=== PATIENT | female | born 1970 | race Hispanic/Latino ===

== ENCOUNTER → 2018-03-02 | Outpatient (CLI) | payer OTHER ==
--- NOTE | 2018-03-02 10:33 | Diagnostic Imaging Report ---
Left knee MRI without contrast. History: Knee pain. Meniscus tear. Swelling. Decreased range of motion. Pain worse with walking Comparison: None. Technique: Multiplanar multi-sequence MRI of the knee without contrast. Findings: Medial compartment: No meniscal tear, cartilage abnormality, or MCL tear. Lateral compartment: There is a complex displaced lateral meniscus tear involving the posterior horn and body segments. The lateral compartmental articular cartilage surfaces are thin with fraying and fissuring. There is a 1 cm peripheral lobulated septated jason meniscal cyst. The lateral collateral ligament complex is intact. There is bone marrow edema in the lateral tibial plateau which is likely stress related. Intercondylar notch: The ACL and PCL are intact. Patellofemoral compartment: No chondromalacia or patellar dislocation. Extensor mechanism: The quadriceps and patellar tendons are normal. Other findings: There is a joint effusion and synovitis. There is no acute fracture, subluxation or avascular necrosis. IMPRESSION: Complex displaced lateral meniscus tear with associated perimeniscal cyst and degenerative arthrosis. Bone marrow edema in the lateral tibial plateau which is likely stress related. Signed by: Dr. Christiano Hogan M.D. on 03/02/2018 10:29 AM
== END | disposition home or self-care (01) ==
LOC: MRI 08:16
PROVIDERS: ATTEND Family Medicine
DX: S83.272A Complex tear of lateral meniscus, current injury, left knee, initial encounter (principal); M17.12 Unilateral primary osteoarthritis, left knee; F17.210 Nicotine dependence, cigarettes, uncomplicated

== ENCOUNTER → 2018-03-14 | Day surgery (SDC) | payer OTHER ==
[2018-03-12 09:10] LABS: BASOPHILS % 0.5 % (0.0-1.0); EOSINOPHILS # (AUTO) 0.2 (0.0-0.4); EOSINOPHILS % 2.1 % (0.0-6.0); HEMATOCRIT 38.7 % (34.2-44.1); HEMOGLOBIN 13.3 g/dL (12.0-16.0); LYMPHOCYTES % 25.6 % (18.0-39.1); MEAN CORPUSCULAR HEMOGLOBIN 32.3 pg (28-32); MEAN CORPUSCULAR HGB CONC 34.4 g/dL (31-35); MEAN CORPUSCULAR VOLUME 93.9 fL (81-99); MONOCYTES # (AUTO) 0.4 (0.2-0.8); MONOCYTES % 5.7 % (4.4-11.3); NEUTROPHILS % 65.7 % (38.7-80.0); PLATELET COUNT 314 x10e3/uL (140-360); RED BLOOD COUNT 4.12 x10e6/uL (3.6-5.1); RED CELL DISTRIBUTION WIDTH 12.4 % (11.7-14.4)
--- NOTE | 2018-03-12 09:42 | Diagnostic Imaging Report ---
PROCEDURE: X-RAY CHEST, TWO VIEWS COMPARISON: None. INDICATIONS: PREOPERATIVE CHEST XRAY FOR KNEE SURGERY FINDINGS: LUNGS: No consolidations or edema. PLEURA: No effusions or pneumothorax. HEART \T\ MEDIASTINUM: The heart is within normal size-limits. There are sternotomy wires sutures and multiple mediastinal vascular clips. BONES \T\ SOFT TISSUES: No acute findings. CONCLUSION: No acute thoracic abnormality. Slade Araujo D.O. Dictated by: Slade Araujo D.O. on 03/12/2018 at 9:46 Electronically approved by: Slade Araujo D.O. on 03/12/2018 at 9:46
[~2018-03-14] MED LIST: ASPIRIN325 MG PO; BUPIVACAINE HCL 0.5% INJ 30 ML VIAL INJ ONE; CEFAZOLIN SOD 2 GM/D5W 50ML 50 ML IV ONE; DEXAMETHASONE SOD PHOS INJ 4 MG/ML VIAL ONE; FENTANYL CITRATE/PF 100MCG/2 ML INJ ONE; IRON325 M1 PO; KETOROLAC TROMETHAMINE 30 MG/ML VIAL ONE; LIDOCAINE HCL 2% LOCAL INJ 5 ML SDV VIAL INJ ONE; METOPROLOL SUCC25 MG PO; MIDAZOLAM HCL 2 MG/2 ML VIAL ONE; ONDANSETRON HCL INJ 2 MG/ML VIAL ONE; PRAVASTATIN SOD80 MG PO; PROPOFOL IV EMULSION 10 MG/ML 20 ML VIAL ONE; SEVOFLURANE INHAL SOLN 250 ML PEN BTL ONE; ZETIA10 MG PO
--- NOTE | 2018-03-16 14:33 | Operative Report ---
DATE OF PROCEDURE: March 14, 2018 PREOPERATIVE DIAGNOSES 1. Left knee degenerative joint disease. 2. Left knee lateral meniscus tear. POSTOPERATIVE DIAGNOSES 1. Left knee degenerative joint disease. 2. Left knee lateral meniscus tear. OPERATIONS/PROCEDURES PERFORMED 1. The patient underwent a left knee examination under anesthesia. 2. Left knee arthroscopy. 3. Left knee partial lateral meniscectomy. 4. Left knee chondroplasty of the lateral femoral condyle and lateral tibial plateau. MERCHANT MARINER: None. ANESTHESIA: General endotracheal intubation anesthesia. IV FLUIDS: Per anesthesia record. BRIEF DESCRIPTION OF THE PATIENT'S OPERATIVE PROCEDURE: Ms. Walsh was taken to the operating room and placed in the supine position on the operating table. Following induction of general anesthesia as well as endotracheal intubation, the patient's left lower extremity was examined under anesthesia. She was found to have a mild effusion within the knee joint but otherwise ligamentously stable knee. The patient's lower extremity was prepped and draped in standard surgical fashion. A 2-portal technique was used to provide this patient arthroscopic evaluation of the knee joint. Examination of the suprapatellar pouch, medial and lateral gutters found no evidence of loose bodies. There was no significant evidence of chondromalacia in the articulating surfaces. The scope was advanced into the medial compartment. Examination of the medial compartment demonstrated no pathology. The scope was then advanced into the intercondylar notch. The anterior cruciate ligament was identified and found to be intact. Scope was advanced in the lateral compartment. There was a torn and macerated lateral meniscus. There was also chondromalacia of the articulating surfaces. A combination of biting forceps and motorized shaver were used to resect the torn portion of meniscus. Chondroplasties of the lateral femoral condyle and lateral tibial plateau were performed at this time. The knee was then deflated with sterile normal saline. The portal sites were closed using 4-0 nylon suture. The portal sites as well as the knee itself were then injected with 0.5% Marcaine with epinephrine. Sterile dressings were applied. The patient was awakened and taken to the postanesthesia care unit in stable condition. Job#: [id number] [id number]
== END | disposition home or self-care (01) ==
LOC: OR 07:16
PROVIDERS: ATTEND Specialist
DX: S83.272A Complex tear of lateral meniscus, current injury, left knee, initial encounter (principal); M17.12 Unilateral primary osteoarthritis, left knee; M22.42 Chondromalacia patellae, left knee; I25.2 Old myocardial infarction; I25.810 Atherosclerosis of coronary artery bypass graft(s) without angina pectoris; I10 Essential (primary) hypertension; F41.9 Anxiety disorder, unspecified; X58.XXXA Exposure to other specified factors, initial encounter; Z01.810 Encounter for preprocedural cardiovascular examination; Z01.812 Encounter for preprocedural laboratory examination; Z01.818 Encounter for other preprocedural examination; Z79.82 Long term (current) use of aspirin; Z68.32 Body mass index [BMI] 32.0-32.9, adult; Z87.891 Personal history of nicotine dependence; Z95.1 Presence of aortocoronary bypass graft; Z95.5 Presence of coronary angioplasty implant and graft
CPT/HCPCS: 29881; 36415; 71046; 85025; 93005; J1100; J1885; J2001; J2250; J2405

== ENCOUNTER → 2019-02-27 | Outpatient (CLI) | payer OTHER ==
[~2019-02-27] MED LIST changes: -BUPIVACAINE HCL 0.5% INJ 30 ML VIAL INJ ONE; -CEFAZOLIN SOD 2 GM/D5W 50ML 50 ML IV ONE; -DEXAMETHASONE SOD PHOS INJ 4 MG/ML VIAL ONE; -FENTANYL CITRATE/PF 100MCG/2 ML INJ ONE; +IOPAMIDOL 370 MG/ML 200 ML INFUS..BTL INJ ONE; -KETOROLAC TROMETHAMINE 30 MG/ML VIAL ONE; -LIDOCAINE HCL 2% LOCAL INJ 5 ML SDV VIAL INJ ONE; -MIDAZOLAM HCL 2 MG/2 ML VIAL ONE; -ONDANSETRON HCL INJ 2 MG/ML VIAL ONE; -PROPOFOL IV EMULSION 10 MG/ML 20 ML VIAL ONE; -SEVOFLURANE INHAL SOLN 250 ML PEN BTL ONE; +SODIUM CHLORIDE 0.9% 50ML 50 ML ONE
[2019-02-27 09:23] LABS: BLOOD UREA NITROGEN 14 mg/dL (7-26); BUN/CREATININE RATIO 24 (6-25); CREATININE, SERUM 0.58 mg/dL (0.57-1.11); EST GLOMERULAR FILTRATION RATE > 60 ML/MIN (60-)
--- NOTE | 2019-02-27 14:39 | Diagnostic Imaging Report ---
CT SOFT TISSUE NECK W HISTORY: Right posterior neck mass COMPARISON: Neck ultrasound 12/26/2018 TECHNIQUE: Axial CT images were obtained through the neck with intravenous, iodine based contrast. Coronal and sagittal reconstructions obtained from the axial data. One or more of the following dose reduction techniques were used: Automated exposure control, adjustment of the mA and/or kV according to patient size, and/or utilization of iterative reconstruction technique. Superficial palpable marker was placed in the right neck/area of interest. Streak artifacts obscure some details. 100 mL of Isovue 370 were administered. DISCUSSION: Approximately 3 cm ovoid, fat density subcutaneous mass along the right upper posterior cervical space is deep to the superficial palpable marker. No suspicious nodularity is seen. This is likely a lipoma. The visualized upper aerodigestive tract is unremarkable. No radiographically significant cervical adenopathy is seen. The thyroid gland is unremarkable. The submandibular and parotid glands are unremarkable. Mild bilateral carotid bulb calcified plaque is present. The it architect, parapharyngeal, posterior cervical, and perivertebral spaces are unremarkable. The visualized intracranial compartment and orbits are grossly unremarkable. The paranasal sinuses are clear. There are mild degenerative changes throughout the spine. There is mild mosaic attenuation in the upper lungs. Median sternotomy changes and coronary artery calcifications are partially visualized. IMPRESSION: Approximately 3 cm subcutaneous lipoma along the right upper posterior cervical space. Signed by: Dr. Daniel Azar M.D. on 02/27/2019 2:35 PM
== END ==
LOC: CT 08:20
PROVIDERS: ATTEND Family Medicine
DX: D72.829 Elevated white blood cell count, unspecified (principal); D17.0 Benign lipomatous neoplasm of skin and subcutaneous tissue of head, face and neck
CPT/HCPCS: 36415; 70491; 82565; 84520; Q9967

== ENCOUNTER 2019-04-21 09:29 | Emergency (ER) | payer OTHER ==
[~2019-04-21] VITALS: Ht 149.9 cm; Wt 64.9 kg
[~2019-04-21 09:29] MED LIST changes: -IOPAMIDOL 370 MG/ML 200 ML INFUS..BTL INJ ONE; -SODIUM CHLORIDE 0.9% 50ML 50 ML ONE
[2019-04-21] MEDS ORDERED: IBUPROFEN 200 MG TAB PO STA (09:36)
[2019-04-21] MEDS ORDERED: ONDANSETRON HCL 4 MG ORAL DISINTEGRATING TAB PO ONE (09:45)
[2019-04-21] MEDS ORDERED: ACETAMINOPHEN 325 MG TAB PO ONE (09:45)
--- NOTE | 2019-04-21 10:28 | Diagnostic Imaging Report ---
EXAMINATION: CXR 2 VIEW - HOPD INDICATION: Pain with deep inspiration ^[id number] ^[id number] COMPARISON: None FINDINGS: PA and lateral views TUBES and LINES: None. LUNGS: Lungs are well inflated. Bibasilar subsegmental atelectasis. No interstitial edema. Pulmonary veins are mildly prominent. PLEURA: No pleural effusion or pneumothorax. HEART AND MEDIASTINUM: Postoperative changes from cardiac bypass. The heart is top normal in size. BONES AND SOFT TISSUES: No focal osseous lesions. Soft tissues are unremarkable. UPPER ABDOMEN: No free air under the diaphragm. IMPRESSION: Bibasilar atelectasis. Pulmonary venous congestion may be chronic. Signed by: Dr. Lorna Jesus MD on 04/21/2019 10:25 AM
[2019-04-21] MEDS ORDERED: ONDANSETRON HCL 4 MG ORAL DISINTEGRATING TAB ONE (10:51)
[2019-04-21] MEDS ORDERED: IBUPROFEN 200 MG TAB ONE (10:52)
[2019-04-21] MEDS ORDERED: ACETAMINOPHEN 325 MG TAB ONE (10:52)
[2019-04-21 12:14] VITALS: BP 128/71
== END 2019-04-21 11:48 | disposition home or self-care (01) ==
LOC: FSED 09:29
DX: M94.0 Chondrocostal junction syndrome [Tietze] (principal); R06.00 Dyspnea, unspecified; I10 Essential (primary) hypertension; E11.9 Type 2 diabetes mellitus without complications; I51.9 Heart disease, unspecified; I25.10 Atherosclerotic heart disease of native coronary artery without angina pectoris; Z95.1 Presence of aortocoronary bypass graft
CPT/HCPCS: 71046; 80053; 81003; 84484; 85025; 85379; 99284; Q0162

== ENCOUNTER → 2021-09-14 | Day surgery (SDC) | payer OTHER ==
[2021-09-09 08:42] LABS: BASOPHILS # (AUTO) 0.1 (0.0-0.1); BASOPHILS % 0.4 % (0.0-1.0); EOSINOPHILS # (AUTO) 0.1 (0.0-0.4); HEMATOCRIT 40.6 % (34.2-44.1); HEMOGLOBIN 13.2 g/dL (12.0-16.0); LYMPHOCYTES # (AUTO) 2.2 (1.0-3.2); LYMPHOCYTES % 18.9 % (18.0-39.1); MEAN CORPUSCULAR HEMOGLOBIN 31.4 pg (28-32); MEAN CORPUSCULAR HGB CONC 32.5 g/dL (31-35); MEAN CORPUSCULAR VOLUME 96.4 fL (81-99); MONOCYTES # (AUTO) 0.6 (0.2-0.8); MONOCYTES % 4.9 % (4.4-11.3); NEUTROPHILS # (AUTO) 8.6 (2.1-6.9); NEUTROPHILS % 74.5 % (38.7-80.0); PLATELET COUNT 309 x10e3/uL (140-360); RED BLOOD COUNT 4.21 x10e6/uL (3.6-5.1); RED CELL DISTRIBUTION WIDTH 12.7 % (11.7-14.4)
[~2021-09-14] MED LIST changes: +AMLODIPINE BESYL5 MG PO; +ASPIRIN81 MG PO; +CARVEDILOL12.5 MG PO; +CRESTOR10 MG PO; +FENTANYL CITRATE/PF 100MCG/2 ML INJ ONE; +LIDOCAINE HCL 2% LOCAL INJ 5 ML SDV VIAL INJ ONE; +METFORMIN HCL500 MG PO; +MIDAZOLAM HCL 2 MG/2 ML VIAL ONE; +MOBIC7.5 MG PO; +PROPOFOL IV EMULSION 10 MG/ML 20 ML VIAL ONE
[2021-09-14 15:25] VITALS: BP 131/70
== END | disposition home or self-care (01) ==
LOC: OR 11:23
PROVIDERS: ATTEND Internal Medicine Gastroenterology
DX: Z12.11 Encounter for screening for malignant neoplasm of colon (principal); D12.2 Benign neoplasm of ascending colon; D12.3 Benign neoplasm of transverse colon; K25.3 Acute gastric ulcer without hemorrhage or perforation; K29.70 Gastritis, unspecified, without bleeding; K57.30 Diverticulosis of large intestine without perforation or abscess without bleeding; K64.8 Other hemorrhoids; E11.9 Type 2 diabetes mellitus without complications; I25.810 Atherosclerosis of coronary artery bypass graft(s) without angina pectoris; E78.5 Hyperlipidemia, unspecified; I25.2 Old myocardial infarction; I10 Essential (primary) hypertension; R00.1 Bradycardia, unspecified; Z01.810 Encounter for preprocedural cardiovascular examination; Z01.812 Encounter for preprocedural laboratory examination; Z20.822 Contact with and (suspected) exposure to COVID-19; Z79.1 Long term (current) use of non-steroidal anti-inflammatories (NSAID); Z79.84 Long term (current) use of oral hypoglycemic drugs; Z79.82 Long term (current) use of aspirin; Z79.899 Other long term (current) drug therapy; Z95.1 Presence of aortocoronary bypass graft; Z95.5 Presence of coronary angioplasty implant and graft; Z80.0 Family history of malignant neoplasm of digestive organs
CPT/HCPCS: 36415 ×2; 43239; 45381; 45384; 45385; 82948; 85025; 93005; J2001; J2250; J2704; J3010; U0002; 45378

== ENCOUNTER → 2021-11-15 | Outpatient (CLI) | payer OTHER ==
[~2021-11-15] MED LIST changes: -FENTANYL CITRATE/PF 100MCG/2 ML INJ ONE; -LIDOCAINE HCL 2% LOCAL INJ 5 ML SDV VIAL INJ ONE; -MIDAZOLAM HCL 2 MG/2 ML VIAL ONE; -PROPOFOL IV EMULSION 10 MG/ML 20 ML VIAL ONE
== END ==
LOC: MAMMO 07:57
PROVIDERS: ATTEND Family Medicine
DX: Z12.31 Encounter for screening mammogram for malignant neoplasm of breast (principal)
CPT/HCPCS: 77067

== ENCOUNTER → 2022-03-01 | Day surgery (SDC) | payer OTHER ==
[2022-02-28 09:19] LABS: BASOPHILS # (AUTO) 0.1 (0.0-0.1); BASOPHILS % 0.6 % (0.0-1.0); EOSINOPHILS # (AUTO) 0.1 (0.0-0.4); EOSINOPHILS % 1.3 % (0.0-6.0); HEMATOCRIT 40.1 % (34.2-44.1); LYMPHOCYTES # (AUTO) 2.1 (1.0-3.2); LYMPHOCYTES % 24.2 % (18.0-39.1); MEAN CORPUSCULAR HEMOGLOBIN 31.5 pg (28-32); MEAN CORPUSCULAR HGB CONC 32.4 g/dL (31-35); MEAN CORPUSCULAR VOLUME 97.1 fL (81-99); MONOCYTES # (AUTO) 0.5 (0.2-0.8); MONOCYTES % 5.8 % (4.4-11.3); NEUTROPHILS # (AUTO) 5.8 (2.1-6.9); NEUTROPHILS % 67.7 % (38.7-80.0); PLATELET COUNT 299 x10e3/uL (140-360); RED BLOOD COUNT 4.13 x10e6/uL (3.6-5.1); RED CELL DISTRIBUTION WIDTH 12.7 % (11.7-14.4)
[~2022-03-01] MED LIST changes: +FENTANYL CITRATE/PF 100MCG/2 ML INJ ONE; +MIDAZOLAM HCL 2 MG/2 ML VIAL ONE; +PROPOFOL IV EMULSION 10 MG/ML 20 ML VIAL ONE
[2022-03-01 11:08] VITALS: BP 134/81
== END | disposition home or self-care (01) ==
LOC: OR 07:24
PROVIDERS: ATTEND Internal Medicine Gastroenterology
DX: K25.3 Acute gastric ulcer without hemorrhage or perforation (principal); D12.2 Benign neoplasm of ascending colon; D12.4 Benign neoplasm of descending colon; K29.70 Gastritis, unspecified, without bleeding; K57.30 Diverticulosis of large intestine without perforation or abscess without bleeding; K64.8 Other hemorrhoids; I10 Essential (primary) hypertension; E78.5 Hyperlipidemia, unspecified; E11.9 Type 2 diabetes mellitus without complications; I25.810 Atherosclerosis of coronary artery bypass graft(s) without angina pectoris; Z01.810 Encounter for preprocedural cardiovascular examination; Z01.812 Encounter for preprocedural laboratory examination; Z20.822 Contact with and (suspected) exposure to COVID-19; Z79.82 Long term (current) use of aspirin; Z79.84 Long term (current) use of oral hypoglycemic drugs; Z79.899 Other long term (current) drug therapy; Z79.1 Long term (current) use of non-steroidal anti-inflammatories (NSAID); Z95.1 Presence of aortocoronary bypass graft; Z80.0 Family history of malignant neoplasm of digestive organs
CPT/HCPCS: 36415 ×2; 43239; 45380; 45385; 82948; 85025; 93005; J2250; J3010; U0002; 45378